=== PATIENT | female | born 1965 ===

== ENCOUNTER 2017-11-20 15:50 | Emergency (ER) | payer BC ==
--- NOTE | 2017-11-20 16:39 | ED PDOC ---
HPI: Chest Pain Time Seen by Provider: 11/20/17 16:11 Chief Complaint (Nursing): Chest Pain History Per: Patient History/Exam Limitations: no limitations Onset/Duration Of Symptoms: Days (2), Gradual Current Symptoms Are (Timing): Intermittent Episodes Severity: Mild Quality: Dull Associated Symptoms: denies: Nausea, Dyspnea, Diaphoresis, Syncope Modifying Factors: None Exacerbating Factors: None Alleviating Factors: None Additional History Per: Patient Additional Complaint(s): To ED for evaluation of chest pain since 11am today. Patient c/o dizziness since yesterday. tinnituds in left ear worse with head movement better with rest denies any sob, no recent stress test Past Medical History Reviewed: Historical Data, Nursing Documentation, Vital Signs Vital Signs: Last Vital Signs Temp 97.5 F L 11/20/17 15:54 Pulse 59 L 11/20/17 15:54 Resp 16 11/20/17 15:54 BP 141/72 11/20/17 15:54 Pulse Ox 94 L 11/20/17 15:54 - Medical History PMH: Anxiety, Asthma, Diabetes, HTN Denies: Chronic Kidney Disease - Surgical History Surgical History: - Family History Family History: States: Unknown Family Hx - Living Arrangements Living Arrangements: With Family - Social History Current smoker - smoking cessation education provided: No Alcohol: None Drugs: Denies - Home Medications Home Medications: Ambulatory Orders Medication Instructions Recorded Guaifenesin/Pseudoephedrne HCl 1 ter PO BID #14 ter 12/12/14 [Mucinex D 1200 mg-120 mg] Dicyclomine [Bentyl] 10 mg PO QID #15 cap 05/12/16 Ondansetron [Zofran] 4 mg PO Q8H #10 tab 05/12/16 Dicyclomine [Bentyl] 20 mg PO Q6 PRN #12 tab 12/03/16 Famotidine [Pepcid] 40 mg PO DAILY #10 tab 12/03/16 Omeprazole 40 mg PO DAILY #30 tab 12/03/16 Acyclovir [Zovirax] 800 mg PO 5XD 7 Days tab 12/04/16 Methylprednisolone [Medrol Dose 4 mg PO DAILY #21 mg 12/04/16 Pack (21 tabs)] oxyCODONE/Acetaminophen [Percocet 1 ea PO Q6 PRN #15 tab 12/04/16 5/325 mg Tab] - Allergies Allergies/Adverse Reactions: Allergies Allergy/AdvReac Type Severity Reaction Status Date / Time latex Allergy RASH Verified 11/20/17 15:54 Penicillins Allergy RASH Verified 11/20/17 15:54 Review of Systems ROS Statement: Except As Marked, All Systems Reviewed And Found Negative Constitutional: Negative for: Fever, Chills Eyes: Negative for: Vision Change Cardiovascular: Negative for: Chest Pain, Palpitations Respiratory: Negative for: Cough, Shortness of Breath Gastrointestinal: Negative for: Nausea, Vomiting, Abdominal Pain Musculoskeletal: Negative for: Neck Pain Skin: Negative for: Rash Neurological: Positive for: Dizziness. Negative for: Weakness, Numbness, Change in Speech, Confusion, Seizures, Altered Mental Status, Headache Physical Exam - Reviewed Nursing Documentation Reviewed: Yes Vital Signs Reviewed: Yes - Physical Exam Appears: Positive for: Non-toxic, Uncomfortable Head Exam: Positive for: ATRAUMATIC, NORMAL INSPECTION, NORMOCEPHALIC Eye Exam: Positive for: Normal appearance, EOMI, PERRL. Negative for: Nystagmus , Periorbital swelling, Periorbital tenderness, Conjunctival injection, Scleral icterus ENT: Positive for: TM Is/Are (nml bl) Neck: Positive for: Normal, Painless ROM, Supple. Negative for: Decreased ROM, Limited ROM, Trachea Midline, Pain On Movement Of Neck Cardiovascular/Chest: Positive for: Regular Rate, Rhythm, Chest Non Tender. Negative for: Edema, Gallop, Murmur, Bradycardia, Tachycardia Respiratory: Positive for: Normal Breath Sounds. Negative for: Decreased Breath Sounds, Accessory Muscle Use, Crackles, Rales, Rhonchi, Stridor, Wheezing , Respiratory Distress, Plerual Rub Pulses-Radial (L): 2+ Pulses-Radial (R): 2+ Gastrointestinal/Abdominal: Positive for: Normal Exam, Bowel Sounds, Soft. Negative for: Tenderness Back: Positive for: Normal Inspection. Negative for: L CVA Tenderness, R CVA Tenderness Extremity: Positive for: Normal ROM. Negative for: Tenderness, Pedal Edema, Calf Tenderness, Deformity, Swelling Neurologic/Psych: Positive for: Alert, ruby on rails consultant II-XII, Oriented, Mood/Affect ( anxious), Cerebellar Tests (ftn nml), Gait (steady), Other (vf intact). Negative for: Motor/Sensory Deficits, Aphasia, Facial Droop - ECG ECG: Positive for: Interpreted By Me ECG Rhythm: Positive for: Normal QRS, Normal ST Segment, Sinus Bradycardia ( rate of 59). Negative for: ST/T Changes Interpretation Of Abn EKG: abnml ecg w/o change compared to 12/03/2016 O2 Sat by Pulse Oximetry: 94 Pulse Ox Interpretation: Normal - Radiology X-Ray: Interpreted by Me X-Ray Interpretation: No Acute Disease - Progress Re-evaluation Time: 16:40 Condition: Improved Disposition - Clinical Impression Clinical Impression: Chest pain - Patient ED Disposition Is Patient to be Admitted: Transfer of Care - Disposition Disposition Time: 16:40 Condition: STABLE Patient Signed Over To: Calvin Shah
--- NOTE | 2017-11-20 16:51 | RAD ---
PROCEDURE: CHEST RADIOGRAPH, 1 VIEW HISTORY: Chest pain COMPARISON: 12/03/2016. FINDINGS: LUNGS: The lungs are clear. PLEURA: No pneumothorax or pleural fluid seen. CARDIOVASCULAR: Normal. OSSEOUS STRUCTURES: No significant abnormalities. VISUALIZED UPPER ABDOMEN: Normal. OTHER FINDINGS: None. IMPRESSION: No active pulmonary disease.
[2017-11-20 17:00] LABS: BASO % 0.4 % (0.0-2.0); EOS # 0.1 K/uL (0.0-0.7); EOS % 1.4 % (0.0-4.0); LYMPH # 3.9 K/uL (1.0-4.3); LYMPH % 48.7 % (20.0-40.0); MEAN CORPUSCULAR HEMOGLOBIN 29.6 pg (27.0-31.0); MONO # 0.6 K/uL (0.0-0.8); MONO % 7.4 % (0.0-10.0); NEUT # 3.3 K/uL (1.8-7.0); NEUT % 42.1 % (50.0-75.0); NRBC % 0.2 % (0.0-0.0); RBC 4.74 Mil/uL (3.80-5.20); RED CELL DISTRIBUTION WIDTH 13.8 % (11.5-14.5); WHITE BLOOD COUNT 7.9 K/uL (4.8-10.8)
[2017-11-20 17:09] LABS: ALB/GLOB RATIO 1.3 (1.0-2.1); ALBUMIN 3.9 g/dL (3.5-5.0); ALT/SGPT 43 U/L (9-52); AST/SGOT 28 U/L (14-36); BLOOD UREA NITROGEN 13 mg/dl (7-17); CALCIUM 9.2 mg/dL (8.4-10.2); GFR AFRICAN-AMERICAN > 60; GFR NON-AFRICAN AMERICAN > 60; LIPASE 133 U/L (23-300); MAGNESIUM 1.8 MG/DL (1.6-2.3)
[2017-11-20 17:19] LABS: INR 1.1 (0.9-1.2); PARTIAL THROMBOPLASTIN TIME 31.8 Seconds (25.6-37.1)
--- NOTE | 2017-11-20 17:37 | CT ---
PROCEDURE: CT HEAD WITHOUT CONTRAST. HISTORY: Dizziness COMPARISON: 05/23/2014. TECHNIQUE: Axial computed tomography images were obtained through the head/brain without intravenous contrast. Radiation dose: Total exam DLP = 866.47 mGy-cm. This CT exam was performed using one or more of the following dose reduction techniques: Automated exposure control, adjustment of the mA and/or kV according to patient size, and/or use of iterative reconstruction technique. FINDINGS: HEMORRHAGE: No intracranial hemorrhage. BRAIN: Chatman-white matter differentiation is preserved. There is no mass, mass effect or abnormal extra-axial fluid collection. VENTRICLES: The ventricles are normal in size, shape and configuration. CALVARIUM: Unremarkable. PARANASAL SINUSES: Predominantly clear. MASTOID AIR CELLS: Predominantly clear. OTHER FINDINGS: None. IMPRESSION: No acute intracranial abnormality.
[2017-11-20 17:44] LABS: T4 7.54 ug/dl (5.5-11.0)
[2017-11-20 17:58] LABS: T3 1.17 nmol/L (1.49-2.60)
[2017-11-20 18:11] LABS: SQUAMOUS EPITHIAL 1 /hpf (0-5); URINE BACTERIA RARE (<OCC); URINE BILIRUBIN NEGATIVE (NEGATIVE); URINE BLOOD NEGATIVE (NEGATIVE); URINE CLARITY SLIGHTY-CLOUDY (Clear); URINE COLOR YELLOW (YELLOW); URINE GLUCOSE (UA) NEG (Normal); URINE LEUKOCYTE ESTERASE NEG Leu/uL (Negative); URINE NITRATE NEGATIVE (NEGATIVE); URINE PROTEIN NEGATIVE (NEGATIVE); URINE UROBILINOGEN 0.2-1.0 mg/dL (0.2-1.0)
--- NOTE | 2017-11-20 18:31 | ED PDOC ---
- Laboratory Results Result Diagrams: 11/20/17 16:42 11/20/17 16:42 - ECG O2 Sat by Pulse Oximetry: 94 Disposition - Clinical Impression Clinical Impression: Chest pain, Vertigo - POA Present On Arrival: None - Disposition Referrals: [facility] [Outside] Disposition: Routine/Home Disposition Time: 18:29 Condition: FAIR Prescriptions: Meclizine [Meclizine*] 25 mg PO Q8 #15 tab Instructions: Vertigo (ED) Forms: [employer] (Chinese)
[2017-11-20 19:23] VITALS: BP 138/78; PULSE 78; RESP 18; TEMP 98.2; O2SAT 99
--- NOTE | 2017-11-21 11:02 | CARD ---
APPROVED REPORT EKG Measurement Heart [id number] <Conclusion> Sinus bradycardia
== END 2017-11-20 19:28 | disposition home or self-care (01) ==
LOC: H.ER 15:50
DX: R07.89 Other chest pain (principal); R42 Dizziness and giddiness; E11.9 Type 2 diabetes mellitus without complications; F41.9 Anxiety disorder, unspecified; I10 Essential (primary) hypertension; J45.909 Unspecified asthma, uncomplicated; Z88.0 Allergy status to penicillin

== ENCOUNTER 2018-01-09 11:43 | Emergency (ER) | payer BC ==
[2018-01-09 12:54] VITALS: RESP 16
[2018-01-09] MEDS ORDERED: Sodium Chloride 0.9% 1,000 ML IV STA (13:29)
[2018-01-09 14:19] LABS: SQUAMOUS EPITHIAL 1 /hpf (0-5); URINE BILIRUBIN NEGATIVE (NEGATIVE); URINE BLOOD NEGATIVE (NEGATIVE); URINE CLARITY CLOUDY (Clear); URINE COLOR AMBER (YELLOW); URINE GLUCOSE (UA) NEG (Normal); URINE LEUKOCYTE ESTERASE NEG Leu/uL (Negative); URINE NITRATE NEGATIVE (NEGATIVE); URINE PROTEIN 30 mg/dL (NEGATIVE); URINE UROBILINOGEN 0.2-1.0 mg/dL (0.2-1.0)
[2018-01-09 14:23] LABS: BASO % 0.2 % (0.0-2.0); EOS # 0.1 K/uL (0.0-0.7); EOS % 0.8 % (0.0-4.0); HEMOGLOBIN 14.7 g/dL (12.0-16.0); LYMPH # 1.9 K/uL (1.0-4.3); LYMPH % 14.9 % (20.0-40.0); MEAN CELL VOLUME 85.5 fl (81.0-99.0); MEAN CORPUSCULAR HEMOGLOBIN 30.1 pg (27.0-31.0); MEAN CORPUSCULAR HGB CONC 35.2 g/dL (33.0-37.0); MEAN PLATELET VOLUME 9.6 fl (7.2-11.7); MONO # 0.5 K/uL (0.0-0.8); MONO % 4.1 % (0.0-10.0); NEUT # 10.3 K/uL (1.8-7.0); RBC 4.9 Mil/uL (3.80-5.20); RED CELL DISTRIBUTION WIDTH 13.7 % (11.5-14.5); WHITE BLOOD COUNT 12.8 K/uL (4.8-10.8)
--- NOTE | 2018-01-09 14:28 | ED PDOC ---
HPI: Abdomen Time Seen by Provider: 01/09/18 12:53 Chief Complaint (Nursing): GI Problem Chief Complaint (Provider): GI Problem History Per: Patient History/Exam Limitations: no limitations Onset/Duration Of Symptoms: Other (prior to arrival) Current Symptoms Are (Timing): Still Present Additional Complaint(s): 52 year old female with no significant past medical history, who presents to the ED for evaluation of 3 episodes of vomiting while at work today. Patient states she did not feel any abdominal pain at first, but is now beginning to develop upper abdominal pain. Denies fever, constipation, or diarrhea. PMD: Dr. Wallis Past Medical History Reviewed: Historical Data, Nursing Documentation, Vital Signs Vital Signs: Last Vital Signs Temp 98.3 F 01/09/18 19:16 Pulse 75 01/09/18 19:16 Resp 16 01/09/18 19:16 BP 122/70 01/09/18 19:16 Pulse Ox 98 01/09/18 19:16 - Medical History PMH: Anxiety, Asthma, Diabetes, HTN Denies: Chronic Kidney Disease - Surgical History Surgical History: - Family History Family History: States: Unknown Family Hx - Home Medications Home Medications: Ambulatory Orders Medication Instructions Recorded Guaifenesin/Pseudoephedrne HCl 1 ter PO BID #14 ter 12/12/14 [Mucinex D 1200 mg-120 mg] Dicyclomine [Bentyl] 10 mg PO QID #15 cap 05/12/16 Ondansetron [Zofran] 4 mg PO Q8H #10 tab 05/12/16 Dicyclomine [Bentyl] 20 mg PO Q6 PRN #12 tab 12/03/16 Famotidine [Pepcid] 40 mg PO DAILY #10 tab 12/03/16 Omeprazole 40 mg PO DAILY #30 tab 12/03/16 Acyclovir [Zovirax] 800 mg PO 5XD 7 Days tab 12/04/16 Methylprednisolone [Medrol Dose 4 mg PO DAILY #21 mg 12/04/16 Pack (21 tabs)] oxyCODONE/Acetaminophen [Percocet 1 ea PO Q6 PRN #15 tab 12/04/16 5/325 mg Tab] Meclizine [Meclizine*] 25 mg PO Q8 #15 tab 11/20/17 Ondansetron [Zofran] 4 mg PO Q8H PRN #6 tab 01/09/18 - Allergies Allergies/Adverse Reactions: Allergies Allergy/AdvReac Type Severity Reaction Status Date / Time latex Allergy RASH Verified 01/09/18 12:51 Penicillins Allergy RASH Verified 01/09/18 12:51 Review of Systems ROS Statement: Except As Marked, All Systems Reviewed And Found Negative Constitutional: Negative for: Fever Gastrointestinal: Positive for: Vomiting, Abdominal Pain. Negative for: Diarrhea, Constipation Physical Exam - Reviewed Nursing Documentation Reviewed: Yes Vital Signs Reviewed: Yes - Physical Exam Appears: Positive for: Non-toxic, No Acute Distress Head Exam: Positive for: ATRAUMATIC, NORMAL INSPECTION, NORMOCEPHALIC Skin: Positive for: Normal Color, Warm, Dry. Negative for: Rash Eye Exam: Positive for: EOMI, Normal appearance, PERRL Neck: Positive for: Normal, Painless ROM, Supple Cardiovascular/Chest: Positive for: Regular Rate, Rhythm. Negative for: Murmur Respiratory: Positive for: Normal Breath Sounds. Negative for: Respiratory Distress Gastrointestinal/Abdominal: Positive for: Tenderness (mild LUQ). Negative for: Guarding, Rebound Back: Positive for: Normal Inspection. Negative for: L CVA Tenderness, R CVA Tenderness, Vertebral Tenderness Extremity: Positive for: Normal ROM. Negative for: Pedal Edema, Deformity Neurologic/Psych: Positive for: Alert, Oriented (x3). Negative for: Motor/ Sensory Deficits - Laboratory Results Result Diagrams: 01/09/18 13:40 01/09/18 13:40 - ECG O2 Sat by Pulse Oximetry: 97 (RA) Pulse Ox Interpretation: Normal Medical Decision Making Medical Decision Making: Time: 13:28 Initial Impression: Gastritis vs obstruction Initial Plan: --CT Abdomen and Pelvis w/ IV Contrast --EKG --CMP --Lipase --ED Urine --CBC w/ differential --Sodium Chloride 0.9% 1,000 mls/hr --Zofran Inj 4 mg IV --Urinalysis --Reevaluation Scribe Attestation: Documented by Jose Cardozo, acting as a scribe for Miriam Horn MD. Provider Scribe Attestation: All medical record entries made by the Scribe were at my direction and personally dictated by me. I have reviewed the chart and agree that the record accurately reflects my personal performance of the history, physical exam, medical decision making, and the department course for this patient. I have also personally directed, reviewed, and agree with the discharge instructions and disposition. Disposition - Clinical Impression Clinical Impression: Abdominal pain - Disposition Referrals: [facility] [Outside] - 01/10/18 Disposition Time: 15:30 Condition: STABLE Additional Instructions: Return if not better in 3 days. Prescriptions: Ondansetron [Zofran] 4 mg PO Q8H PRN #6 tab PRN Reason: Nausea/Vomiting Instructions: Acute Abdomen (Belly Pain), Adult (DC) Forms: [facility] ED School/Work Excuse Patient Signed Over To: Urbano Delgadillo Handoff Comments: Pending CT.
[2018-01-09 14:34] LABS: ALB/GLOB RATIO 1.2 (1.0-2.1); ALT/SGPT 45 U/L (9-52); AST/SGOT 35 U/L (14-36); BLOOD UREA NITROGEN 18 mg/dl (7-17); CALCIUM 9.4 mg/dL (8.4-10.2); GFR AFRICAN-AMERICAN > 60; GFR NON-AFRICAN AMERICAN > 60; LIPASE 111 U/L (23-300)
[2018-01-09] MEDS ORDERED: Iodixanol 320 MG/ML 100 ML BOTTLE IV ONE (16:29)
[2018-01-09] MEDS ORDERED: Sodium Chloride 0.9% 100 ML ONE (16:29)
--- NOTE | 2018-01-09 17:37 | ED PDOC ---
- Laboratory Results Result Diagrams: 01/09/18 13:40 01/09/18 13:40 Interpretation Of Abnormal: no acute - ECG O2 Sat by Pulse Oximetry: 97 (RA) Pulse Ox Interpretation: Normal - Progress ED Course And Treament: 1730: Took over care from Dr. Horn. Fu on CT. Here with vomit episodes and upper abd pain. 1834: Stable. AAOx3. Ct neg. No meds for pain given. Will give toradol. Tolerated PO. Fu with pcp. Disposition Counseled Patient/Family Regarding: Studies Performed, Diagnosis, Need For Followup - Clinical Impression Clinical Impression: Abdominal pain - POA Present On Arrival: None - Disposition Referrals: [facility] [Outside] - 01/10/18 Disposition: Routine/Home Disposition Time: 18:35 Condition: FAIR Additional Instructions: Return if not better in 3 days. Instructions: Acute Abdomen (Belly Pain), Adult (DC)
--- NOTE | 2018-01-09 17:49 | CT ---
PROCEDURE: CT Abdomen and Pelvis with contrast HISTORY: LUQ pain, vomiting COMPARISON: 05/12/2016 TECHNIQUE: Contrast dose: 90 mL Omnipaque 300 Radiation dose: Total exam DLP = 1073.60 mGy-cm. This CT exam was performed using one or more of the following dose reduction techniques: Automated exposure control, adjustment of the mA and/or kV according to patient size, and/or use of iterative reconstruction technique. FINDINGS: LOWER THORAX: Stable 8 mm left lower lobe subpleural nodule. LIVER: Mild hepatomegaly. The liver measures approximately 21 cm craniocaudal. Smooth contour. No mass. No biliary dilatation. GALLBLADDER AND BILE DUCTS: Unremarkable. PANCREAS: Unremarkable. No gross lesion or ductal dilatation. SPLEEN: Unremarkable. ADRENALS: Unremarkable. No mass. KIDNEYS AND URETERS: 2 mm nonobstructing mid right renal calculus. No mass. No hydronephrosis. VASCULATURE: Unremarkable. No aortic aneurysm. BOWEL: Unremarkable. No obstruction. No gross mural thickening. APPENDIX: Normal appendix. PERITONEUM: Unremarkable. No free fluid. No free air. LYMPH NODES: Unremarkable. No enlarged lymph nodes. BLADDER: Decompressed REPRODUCTIVE: Normal uterus BONES: No acute fracture. OTHER FINDINGS: None. IMPRESSION: No evidence of bowel obstruction. Stable 8 mm left lower lobe pulmonary nodule. Mild hepatomegaly. Nonobstructing 2 mm mid right renal calculus. No other significant abnormality.
[2018-01-09 21:31] VITALS: BP 122/70; PULSE 75; TEMP 98.3
[2018-01-10 16:30] VITALS: O2SAT 97
--- NOTE | 2018-01-11 18:20 | CARD ---
APPROVED REPORT EKG Measurement Heart [id number] <Conclusion> Normal sinus rhythm Possible Left atrial enlargement Left axis deviation Abnormal ECG
== END 2018-01-09 19:12 | disposition home or self-care (01) ==
LOC: H.ER 11:43
DX: R10.9 Unspecified abdominal pain (principal); E11.9 Type 2 diabetes mellitus without complications; F41.9 Anxiety disorder, unspecified; I10 Essential (primary) hypertension; J45.909 Unspecified asthma, uncomplicated; Z88.0 Allergy status to penicillin
CPT/HCPCS: 74177; 80053; 81003; 81025; 83690; 85025; 93005; 96374; 99283; J1885; J2405; J7040; Q9967

== ENCOUNTER 2019-03-07 14:41 | Emergency (ER) | payer BC, OTHER ==
[2019-03-07 15:15] VITALS: BP 128/78; PULSE 68; RESP 18; TEMP 98.4; O2SAT 99
--- NOTE | 2019-03-07 15:34 | ED PDOC ---
HPI: CCC, URI, Sore Throat Time Seen by Provider: 03/07/19 15:20 Chief Complaint (Nursing): ENT Problem Chief Complaint (Provider): ENT Problem History Per: Patient History/Exam Limitations: no limitations Current Symptoms Are (Timing): Still Present Location Of Pain: Ear(s), Sinus/es Additional Complaint(s): 53 y/o female presents to the ED for evaluation of nasal congestion, facial pain and ear pain, onset three days ago. Patient reports of noticing liquid comining out of her ears associated with room-spinning dizziness. PMD:Patrick Wallis I. Past Medical History Reviewed: Historical Data, Nursing Documentation, Vital Signs Vital Signs: Last Vital Signs Temp 98.4 F 03/07/19 15:12 Pulse 68 03/07/19 15:12 Resp 18 03/07/19 15:12 BP 128/78 03/07/19 15:12 Pulse Ox 99 03/07/19 15:12 Primary Care Physician: Patrick Wallis MD - Medical History PMH: Anxiety, Asthma, Diabetes, HTN Denies: Chronic Kidney Disease - Surgical History Surgical History: - Family History Family History: States: Unknown Family Hx - Home Medications Home Medications: Ambulatory Orders Medication Instructions Recorded Guaifenesin/Pseudoephedrne HCl 1 ter PO BID #14 ter 12/12/14 [Mucinex D 1200 mg-120 mg] Dicyclomine [Bentyl] 10 mg PO QID #15 cap 05/12/16 Ondansetron [Zofran] 4 mg PO Q8H #10 tab 05/12/16 Dicyclomine [Bentyl] 20 mg PO Q6 PRN #12 tab 12/03/16 Famotidine [Pepcid] 40 mg PO DAILY #10 tab 12/03/16 Omeprazole 40 mg PO DAILY #30 tab 12/03/16 Acyclovir [Zovirax] 800 mg PO 5XD 7 Days tab 12/04/16 Methylprednisolone [Medrol Dose 4 mg PO DAILY #21 mg 12/04/16 Pack (21 tabs)] oxyCODONE/Acetaminophen [Percocet 1 ea PO Q6 PRN #15 tab 12/04/16 5/325 mg Tab] Meclizine [Meclizine*] 25 mg PO Q8 #15 tab 11/20/17 Ondansetron [Zofran] 4 mg PO Q8H PRN #6 tab 01/09/18 Amoxicillin/Potassium Clav 1 each PO BID #20 tablet 03/07/19 [Amox-Clav 875-125 mg Tablet] Carbamide Peroxide [Debrox Ear 5 - 10 drop OS BID #1 bottle 03/07/19 Drops] Pseudoephedrine [Sudafed Tab] 60 mg PO Q6 PRN #24 tab 03/07/19 - Allergies Allergies/Adverse Reactions: Allergies Allergy/AdvReac Type Severity Reaction Status Date / Time latex Allergy RASH Verified 01/09/18 12:51 Penicillins Allergy RASH Verified 01/09/18 12:51 Review of Systems ROS Statement: Except As Marked, All Systems Reviewed And Found Negative ENT: Positive for: Ear Pain, Nose Congestion, Other (facial pain) Physical Exam - Reviewed Nursing Documentation Reviewed: Yes Vital Signs Reviewed: Yes - Physical Exam Appears: Positive for: No Acute Distress Head Exam: Positive for: NORMAL INSPECTION (no facial tenderness) ENT: Positive for: TM Is/Are (Cerumen impaction noted in the TMs. ). Negative for: Other (ear canal edema or pain) Lymphatic: Positive for: Adenopathy (mild cervical lymphadenopathy) - ECG O2 Sat by Pulse Oximetry: 99 (RA) Pulse Ox Interpretation: Normal Medical Decision Making Medical Decision Making: Time: 1535 -- Attempt to remove wax made by JARON. However, patient was unable to tolerate removal. -- Allergies reviewed with patient who reports of having taken amoxicillin in the past with no reaction. -- Patient to be discharged home with a diagnosis of sinusitis and cerumen impaction. Scribe Attestation: Documented by Julio Ventura, acting as a scribe Sanford Che PA-C. Provider Scribe Attestation: All medical record entries made by the Scribe were at my direction and per sonally dictated by me. I have reviewed the chart and agree that the record accurately reflects my personal performance of the history, physical exam, medical decision making, and the department course for this patient. I have also personally directed, reviewed, and agree with the discharge instructions and disposition. Disposition - Clinical Impression Clinical Impression: Sinusitis, Excessive cerumen in left ear canal - Patient ED Disposition Is Patient to be Admitted: No - Disposition Referrals: Patrick Wallis MD [Primary Care Provider] - Disposition: Routine/Home Disposition Time: 15:42 Condition: FAIR Prescriptions: Amoxicillin/Potassium Clav [Amox-Clav 875-125 mg Tablet] 1 each PO BID #20 tablet Carbamide Peroxide [Debrox Ear Drops] 5 - 10 drop OS BID #1 bottle Pseudoephedrine [Sudafed Tab] 60 mg PO Q6 PRN #24 tab PRN Reason: Nasal Congestion Instructions: Ear Wax Impaction, Sinusitis, Adult (DC) Forms: [facility] ED School/Work Excuse
== END 2019-03-07 16:07 | disposition home or self-care (01) ==
LOC: H.ER 14:41 → SUPCPDRO 14:41 → H.ER 16:07
DX: H61.22 Impacted cerumen, left ear (principal); J32.9 Chronic sinusitis, unspecified; E11.9 Type 2 diabetes mellitus without complications; I10 Essential (primary) hypertension; Z88.0 Allergy status to penicillin